=== PATIENT | female | born 1980 | race Hispanic/Latino ===

== ENCOUNTER 2016-05-25 10:14 | Outpatient (CLI) | payer MEDICARE | END 2016-05-25 10:15 | disposition home or self-care (01) | LOC: WOUND 10:14 | PROVIDERS: ATTEND Orthopaedic Surgery | DX: T81.89XD Other complications of procedures, not elsewhere classified, subsequent encounter (principal); L89.314 Pressure ulcer of right buttock, stage 4; Y83.8 Other surgical procedures as the cause of abnormal reaction of the patient, or of later complication, without mention of misadventure at the time of the procedure | CPT/HCPCS: 87075; 87116 ==

== ENCOUNTER 2016-06-15 09:15 | Outpatient (CLI) | payer MEDICARE ==
[2016-06-15] MEDS ORDERED: DAKIN'S FULL STRENGTH ONE (10:51)
[2016-06-15] MEDS ORDERED: DAKIN'S FULL STRENGTH TP ONE (11:56)
== END 2016-06-15 09:16 | disposition home or self-care (01) ==
LOC: WOUND 09:15
PROVIDERS: ATTEND Internal Medicine
DX: T81.89XD Other complications of procedures, not elsewhere classified, subsequent encounter (principal); L89.314 Pressure ulcer of right buttock, stage 4; Y83.8 Other surgical procedures as the cause of abnormal reaction of the patient, or of later complication, without mention of misadventure at the time of the procedure
CPT/HCPCS: 99215; G0463

== ENCOUNTER 2016-06-16 14:21 | Inpatient (IN) | payer MEDICARE ==
[2016-06-16] MEDS ORDERED: MORPHINE IV ONE (23:12)
[2016-06-16] MEDS ORDERED: ZOFRAN IV ONE (23:12)
[2016-06-16 23:46] LABS: Basophils % (Auto) 0.7 % (0.0-1.8); Eosinophils % (Auto) 4.2 % (0.0-4.3); Hematocrit 40.9 % (30.3-42.9); Hemoglobin 13.3 gm/dl (10.1-14.3); Mean Corpuscular HGB Conc 33 % (30-34); Mean Corpuscular Hemoglobin 27 pg (28-32); Mean Corpuscular Volume 84 fl (79-97); Platelet Count 316 K/mm3 (140-440); Red Blood Count 4.89 M/mm3 (3.65-5.03); Red Cell Distribution Width 17.3 % (13.2-15.2); White Blood Count 9.7 K/mm3 (4.5-11.0)
[2016-06-17] MEDS ORDERED: DILAUDID ONE (00:04)
[2016-06-17] MEDS ORDERED: DILAUDID IV ONE ×2 (00:06→01:27)
[2016-06-17 00:12] LABS: Anion Gap 23 mmol/L; BUN/Creatinine Ratio 36.66; Blood Urea Nitrogen 11 mg/dL (7-17); Calcium 8.8 mg/dL (8.4-10.2); Carbon Dioxide 16 mmol/L (22-30); Chloride 103.6 mmol/L (98-107); Creatine Kinase 62 units/L (30-135); Glucose 179 mg/dL (65-100); Potassium 3.8 mmol/L (3.6-5.0); Sodium 139 mmol/L (137-145)
[2016-06-17] MEDS ORDERED: NACL 0.9% 1000 ML 1,000 ML IV ONE (01:27)
--- NOTE | 2016-06-17 01:43 | Emergency Department Report ---
- General Chief Complaint: Wound/Laceration Stated Complaint: UPPER BACK PAIN Time Seen by Provider: 06/16/16 22:57 Source: patient, family Mode of arrival: Wheelchair Limitations: Physical Limitation - History of Present Illness Initial Comments: 36 year old female with a past medical history of diabetes, cerebral palsy, chronic back pain, no sensation below level T10/parpalegia presents to the hospital with complaints of infected chronic stage IV pressure ulcer and posterior thoracic pain status post fall. Patient goes to the Wound Care clinic here as a regional every 2 weeks. She visited the wound care clinic yesterday and was aforementioned to come to the hospital for admission. Patient is not currently on antibiotics. Yesterday while transferring patient fell striking her back on the floor and complains of posterior thoracic pain since. Pain is 9/10 intensity, constant, worse palpation and movement. No alleviating factors reported. Patient denies fevers - Related Data Home Medications Medication Instructions Recorded Confirmed Last Taken Atenolol [Tenormin] 25 mg PO DAILY 08/12/14 03/09/16 09/14/14 Glimepiride [Amaryl] 2 mg PO BID 08/12/14 03/09/16 09/14/14 Metformin HCl [Glucophage] 1,000 mg PO BID 08/12/14 03/09/16 09/14/14 Nortriptyline [Pamelor] 20 mg PO QHS 08/12/14 03/09/16 09/14/14 Valsartan [Diovan] 40 mg PO DAILY 08/12/14 03/09/16 09/14/14 Magnesium Oxide 1 tab PO DAILY 03/18/15 03/09/16 Unknown Tramadol HCl 1 tab PO Q6HR PRN 03/18/15 03/09/16 Unknown Allergies Allergy/AdvReac Type Severity Reaction Status Date / Time amoxicillin trihydrate AdvReac Diarrhea Verified 04/08/15 12:08 [From Augmentin] potassium clavulanate AdvReac Diarrhea Verified 04/08/15 12:08 [From Augmentin] ED Review of Systems ROS: Stated complaint: UPPER BACK PAIN Other details as noted in HPI Comment: All other systems reviewed and negative Other: Constitutional: No fevers chills Eyes: No eye pain visual changes ENT: No ear pain or throat pain Neck: Denies pain Respiratory: Denies cough wheezing shortness of breath Cardiovascular: Denies chest pain, palpitations, syncope GI: Denies abdominal pain, nausea, vomiting, diarrhea : Denies dysuria, urinary frequency, or urgency Musculoskeletal: As per HPI Skin: As per HPI Neurologic: Denies headache ED Past Medical Hx - Past Medical History Hx Hypertension: No Hx Heart Attack/AMI: No Hx Congestive Heart Failure: No Hx Diabetes: Yes Hx Liver Disease: No Hx Arthritis: Yes Hx Headaches / Migraines: Yes Hx Seizures: No Hx Kidney Stones: Yes Hx Asthma: No Hx COPD: No Hx HIV: No Additional medical history: Cerebral palsy, Numerous shunts and revisions, back pain, menangioma, hydrocephalus - Surgical History Additional Surgical History: 3 laminectomies, Shunts and revisions of shunts, Urostomy, colostomy, cervical fusion - Social History Smoking Status: Never Smoker Substance Use Type: None - Medications Home Medications: Home Medications Medication Instructions Recorded Confirmed Last Taken Type Atenolol [Tenormin] 25 mg PO DAILY 08/12/14 03/09/16 09/14/14 History Glimepiride [Amaryl] 2 mg PO BID 08/12/14 03/09/16 09/14/14 History Metformin HCl [Glucophage] 1,000 mg PO BID 08/12/14 03/09/16 09/14/14 History Nortriptyline [Pamelor] 20 mg PO QHS 08/12/14 03/09/16 09/14/14 History Valsartan [Diovan] 40 mg PO DAILY 08/12/14 03/09/16 09/14/14 History Magnesium Oxide 1 tab PO DAILY 03/18/15 03/09/16 Unknown History Tramadol HCl 1 tab PO Q6HR PRN 03/18/15 03/09/16 Unknown History ED Physical Exam - General Limitations: Physical Limitation - Other Other exam information: General: No limitations, patient is alert in no acute distress Head exam: Atraumatic, normocephalic Eyes exam: Normal appearance, pupils equal reactive to light, extraocular movements intact ENT: Moist mucous membrane, normal oropharynx Neck exam: Normal inspection, full range of motion, no meningismus nontender Respiratory exam: Clear to auscultation bilateral, no wheezes, rales, crackles Cardiovascular: Normal rate and rhythm, normal heart sounds Abdomen: Soft, nondistended, and nontender, with normal bowel sounds, no rebound, or guarding Extremity: Full range of motion normal inspection no deformity Back: Normal Inspection, full range of motion. Generalized posterior thoracic pain including midline Neurologic: Alert, oriented x3, cranial nerves intact, paraplegia Psychiatric: normal affect, normal mood Skin: Right posterior upper thigh pressure ulcer with pink tissue but malodorous green drainage noted ED Course Vital Signs 06/16/16 06/16/16 06/16/16 15:17 22:32 22:47 Temperature 97.5 F L Pulse Rate 103 H Respiratory 16 18 Rate Blood Pressure 94/42 167/73 O2 Sat by Pulse 100 100 Oximetry 06/16/16 06/16/16 06/16/16 22:50 23:00 23:10 Temperature Pulse Rate 99 H 92 H 98 H Respiratory 10 L 29 H 23 Rate Blood Pressure 167/73 167/73 132/66 O2 Sat by Pulse 98 97 97 Oximetry 06/16/16 06/16/16 06/16/16 23:20 23:30 23:40 Temperature Pulse Rate 101 H 102 H 106 H Respiratory 14 15 15 Rate Blood Pressure 111/47 111/47 142/68 O2 Sat by Pulse 96 97 98 Oximetry 06/16/16 06/17/16 06/17/16 23:50 00:00 00:10 Temperature Pulse Rate 105 H 134 H 125 H Respiratory 17 14 24 Rate Blood Pressure 165/82 165/82 183/95 O2 Sat by Pulse 98 97 98 Oximetry - Reevaluation(s) Reevaluation #1: 06/17/16 01:47 Despite multiple doses of narcotic pain medication patient still is in too much pain to lie flat for the wrist 6 x-rays therefore deferred at this time. Vancomycin ordered for infected pressure wound ED Medical Decision Making - Lab Data Result diagrams: 06/16/16 23:18 06/16/16 23:18 Lab Results 06/16/16 06/16/16 Range/Units 23:18 23:18 WBC 9.7 (4.5-11.0) K/mm3 RBC 4.89 (3.65-5.03) M/mm3 Hgb 13.3 (10.1-14.3) gm/dl Hct 40.9 (30.3-42.9) % MCV 84 (79-97) fl MCH 27 L (28-32) pg MCHC 33 (30-34) % RDW 17.3 H (13.2-15.2) % Plt Count 316 (140-440) K/mm3 Lymph % (Auto) 26.7 (13.4-35.0) % [place] % (Auto) 7.1 (0.0-7.3) % Eos % (Auto) 4.2 (0.0-4.3) % Baso % (Auto) 0.7 (0.0-1.8) % Lymph # 2.6 (1.2-5.4) K/mm3 [place] # 0.7 (0.0-0.8) K/mm3 Eos # 0.4 (0.0-0.4) K/mm3 Baso # 0.1 (0.0-0.1) K/mm3 Seg Neutrophils % 61.3 (40.0-70.0) % Seg Neutrophils # 6.0 (1.8-7.7) K/mm3 Sodium 139 (137-145) mmol/L Potassium 3.8 (3.6-5.0) mmol/L Chloride 103.6 (98-107) mmol/L Carbon Dioxide 16 L (22-30) mmol/L Anion Gap 23 mmol/L BUN 11 (7-17) mg/dL Creatinine 0.3 L (0.7-1.2) mg/dL Estimated GFR > 60 ml/min BUN/Creatinine Ratio 36.66 % Glucose 179 H (65-100) mg/dL Calcium 8.8 (8.4-10.2) mg/dL Total Creatine Kinase 62 (30-135) units/L - Medical Decision Making Patient admitted to the hospital for further treatment of infected stage IV right leg pressure ulcer. Normal saline and vancomycin ordered in addition to pain medication and Zofran. Posterior thoracic imaging deferred this time due to patient's inability to tolerate positioning secondary to pain - Differential Diagnosis infected pressure wound, fracture, contusion Critical Care Time: No Critical care attestation.: If time is entered above; I have spent that time in minutes in the direct care of this critically ill patient, excluding procedure time. ED Disposition Clinical Impression: Paraplegia, Infected decubitus ulcer, Diabetes mellitus, Cerebral palsy Disposition: OP ADMITTED IP TO THIS HOSP Is pt being admited?: Yes Condition: Stable Time of Disposition: 01:50 (dR RODRIGUEZ/HOSP)
[2016-06-17] MEDS ORDERED: VANCOMYCIN/NS 1 GM/250 ML 1 GM/250 ML BAG IV ONE (01:45)
[2016-06-17] MEDS ORDERED: DULCOLAX PR PRN (02:09)
[2016-06-17] MEDS ORDERED: MILK OF MAGNESIA PO PRN (02:09)
[2016-06-17] MEDS ORDERED: TYLENOL PO PRN (02:09)
[2016-06-17] MEDS ORDERED: ZOFRAN IV PRN (02:09)
--- NOTE | 2016-06-17 02:17 | History and Physical Report ---
History of Present Illness Date of examination: 06/17/16 Date of admission: 06/17/16 Chief complaint: infected decuibitus ulcer History of present illness: This is a 36 year old female with a past medical history of diabetes, cerebral palsy, hydrocephalus s/p [employer] shunt, no sensation below level T10/parpalegia presents to the hospital with complaints of infected chronic stage IV pressure ulcer and posterior thoracic pain status post fall. Patient goes to the Wound Care clinic where she gets follow up every 2 weeks. She visited the wound care clinic yesterday and was mentioned to come to the hospital for admission. Patient is not currently on antibiotics. Yesterday while transferring patient, she fell striking her back on the floor and complains of posterior thoracic pain since. Pain is 9/10 intensity, constant, worse palpation and movement. No alleviating factors reported. Patient denies any fever. 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 Social History: Lives with family, denies any smoking, drinking and elicit drug abuse. Family History: Significant for DM Review of System: Constitutional: no fever, no chills, no weight loss Ears, eyes, nose, mouth and throat: no nasal congestion, no nasal discharge, no sinus pressure, no vision change, no red eye. Neck: No neck pain or rigidity. Cardiovascular: No chest pain, no orthopnea, no palpitations, no leg swelling Respiratory: No shortness of breath, no cough, no congestion, no wheezing Gastrointestinal: no abdominal pain, no nausea, no vomiting Genitourinary : no dysuria, no hematuria Musculoskeletal: no joint swelling, + back pain Integumentary: no rash, no pruritis, sacral decuibitus ulcer Neurological: paraplegic Endocrine: no cold or heat intolerance, no polyuria or polydipsia Hematologic/Lymphatic: no easy bruising, no easy bleeding, no gland swelling Allergic/Immunologic: no urticaria, no angioedema. Medications and Allergies Allergies Allergy/AdvReac Type Severity Reaction Status Date / Time amoxicillin trihydrate AdvReac Diarrhea Verified 04/08/15 12:08 [From Augmentin] potassium clavulanate AdvReac Diarrhea Verified 04/08/15 12:08 [From Augmentin] Home Medications Medication Instructions Recorded Confirmed Last Taken Type Atenolol [Tenormin] 25 mg PO DAILY 08/12/14 03/09/16 09/14/14 History Glimepiride [Amaryl] 2 mg PO BID 08/12/14 03/09/16 09/14/14 History Metformin HCl [Glucophage] 1,000 mg PO BID 08/12/14 03/09/16 09/14/14 History Nortriptyline [Pamelor] 20 mg PO QHS 08/12/14 03/09/16 09/14/14 History Valsartan [Diovan] 40 mg PO DAILY 08/12/14 03/09/16 09/14/14 History Magnesium Oxide 1 tab PO DAILY 03/18/15 03/09/16 Unknown History Tramadol HCl 1 tab PO Q6HR PRN 03/18/15 03/09/16 Unknown History Active Meds: Active Medications Acetaminophen (Tylenol) 650 mg PO Q4H PRN PRN Reason: Pain MILD(1-3)/Fever >100.5/HSU Atenolol (Tenormin) 25 mg PO DAILY NAEL Bisacodyl (Dulcolax) 10 mg AK QDAY PRN PRN Reason: Constipation unrelieved by MOM Enoxaparin Sodium (Lovenox) 40 mg SUB-Q QDAY NAEL Glimepiride (Amaryl) 2 mg PO BID NAEL Vancomycin HCl (Vancomycin/Ns 1 Gm/250 Ml) 1 gm in 250 mls @ 167.007 mls/hr IV ONCE ONE PRN Reason: Protocol Stop: 06/17/16 03:14 Sodium Chloride (Nacl 0.9% 1000 Ml) 1,000 mls @ 999 mls/hr IV ONCE ONE Stop: 06/17/16 02:27 Last Admin: 06/17/16 01:53 Dose: 999 mls/hr Sodium Chloride (Nacl 0.9% 1000 Ml) 1,000 mls @ 100 mls/hr IV DIRECT NAEL Insulin Human Regular (Novolin R) 0 units SUB-Q ACHS NAEL PRN Reason: Protocol Magnesium Hydroxide (Milk Of Magnesia) 30 ml PO Q4H PRN PRN Reason: Constipation Miscellaneous Medication (Magnesium Oxide) 1 tab PO DAILY NAEL Miscellaneous Medication (Metformin Hcl [Glucophage]) 1,000 mg PO BID [facility] Miscellaneous Medication (Tramadol Hcl) 1 tab PO Q6HR PRN PRN Reason: Pain Morphine Sulfate (Morphine) 2 mg IV Q4H PRN PRN Reason: Pain, Moderate (4-6) Nortriptyline HCl (Pamelor) 20 mg PO QHS [facility] Ondansetron HCl (Zofran) 4 mg IV Q8H PRN PRN Reason: N/V unrelieved by Reglan Valsartan (Diovan) 40 mg PO DAILY [facility] Vancomycin HCl (Vancomycin Pharmacy To Dose) 1 each IV PKCONSULT NAEL PRN Reason: Protocol Vancomycin HCl (Vancomycin Vial) 41.1 mg IV Q12H NAEL PRN Reason: Protocol Exam - Physical Exam Narrative exam: GENERAL: This is well-developed well-nourished WF lying on bed appeared to be in no discomfort. HEENT: Normocephalic. Atraumatic. Extraocular motions are intact. No conjunctival congestion or icterus. Patient has moist mucous membranes. External auditory canal and nares patent bilaterally. NECK: Trachea midline, thick short neck. No JVD, thyromagaly or lymphadenopathy. CHEST/LUNGS: Clear to auscultated bilaterally. There is no respiratory distress noted, breathing nonlabored. No wheezes crackles or rhonchi. HEART/CARDIOVASCULAR: Regular in rate and rhythm. PMI at the apex. There is no gallop rub or murmur. ABDOMEN: Abdomen is soft, nontender. Patient has normal bowel sounds. urostomy and colostomy bag in place SKIN: There is no rash, no erythrema. There is no diaphoresis. Warm and dry. sacral decuibitus ulcer NEUROLOGY: The patient is awake, alert, and oriented. The patient is cooperative. The patient has normal speech. paraplegic. MUSCULOSKELETAL: No joint effusion. Muscle strength equal bilaterally on UE. EXTRIMITY: No edema, cyanosis or clubbing. PSYCH: No depression or anxiety noted. Cooperative. - Constitutional Vitals: Temp Pulse Resp BP Pulse Ox 97.5 F L 125 H 24 183/95 98 06/16/16 15:17 06/17/16 00:10 06/17/16 00:10 06/17/16 00:10 06/17/16 00:10 Results - Labs CBC & Chem 7: 06/16/16 23:18 06/16/16 23:18 Labs: Laboratory Last Values WBC 9.7 K/mm3 (4.5-11.0) 06/16/16 23:18 RBC 4.89 M/mm3 (3.65-5.03) 06/16/16 23:18 Hgb 13.3 gm/dl (10.1-14.3) 06/16/16 23:18 Hct 40.9 % (30.3-42.9) 06/16/16 23:18 MCV 84 fl (79-97) 06/16/16 23:18 MCH 27 pg (28-32) L 06/16/16 23:18 MCHC 33 % (30-34) 06/16/16:18 RDW 17.3 % (13.2-15.2) H 06/16/16 23:18 Plt Count 316 K/mm3 (140-440) 06/16/16 23:18 Lymph % (Auto) 26.7 % (13.4-35.0) 06/16/16 23:18 [place] % (Auto) 7.1 % (0.0-7.3) 06/16/16 23:18 Eos % (Auto) 4.2 % (0.0-4.3) 06/16/16 23:18 Baso % (Auto) 0.7 % (0.0-1.8) 06/16/16 23:18 Lymph # 2.6 K/mm3 (1.2-5.4) 06/16/16 23:18 [place] # 0.7 K/mm3 (0.0-0.8) 06/16/16 23:18 Eos # 0.4 K/mm3 (0.0-0.4) 06/16/16 23:18 Baso # 0.1 K/mm3 (0.0-0.1) 06/16/16 23:18 Seg Neutrophils % 61.3 % (40.0-70.0) 06/16/16 23:18 Seg Neutrophils # 6.0 K/mm3 (1.8-7.7) 06/16/16 23:18 Sodium 139 mmol/L (137-145) 06/16/16 23:18 Potassium 3.8 mmol/L (3.6-5.0) 06/16/16 23:18 Chloride 103.6 mmol/L (98-107) 06/16/16 23:18 Carbon Dioxide 16 mmol/L (22-30) L 06/16/16 23:18 Anion Gap 23 mmol/L 06/16/16 23:18 BUN 11 mg/dL (7-17) 06/16/16 23:18 Creatinine 0.3 mg/dL (0.7-1.2) L 06/16/16 23:18 Estimated GFR > 60 ml/min 06/16/16 23:18 BUN/Creatinine Ratio 36.66 % 06/16/16 23:18 Glucose 179 mg/dL (65-100) H 06/16/16 23:18 Calcium 8.8 mg/dL (8.4-10.2) 06/16/16 23:18 Total Creatine Kinase 62 units/L (30-135) 06/16/16 23:18 Assessment and Plan Assessment and plan: Infected decubitus ulcer stage IV History of cerebral palsy Hypertension, benign essential Diabetes mellitus type 2 on oral hypoglycemics paraplegic s/o urostomy and colostomy s/p fall Plan: Admit to medicine Place on IV vancomycin Wound care consult, wound culture Resume home meds ADA diet, supportive care GS consult for possible debridement follow GS recommendation for MRI for possible osteomylitis consider CT thoracic spine if continue to have thoracic back pain Advance Directives: Yes VTE prophylaxis?: Chemical Plan of care discussed with patient/family: Yes
[2016-06-17] MEDS ORDERED: VANCOMYCIN PHARMACY TO DOSE IV SCH (03:00)
[2016-06-17] MEDS ORDERED: VANCOMYCIN VIAL IV SCH (03:00)
[2016-06-17] MEDS: MORPHINE IV PRN ×4 (04:21→22:34)
[2016-06-17] MEDS: NACL 0.9% 1000 ML 1,000 ML IV SCH (04:22)
[2016-06-17] MEDS: GLUCOPHAGE PO SCH ×2 (08:45→16:59)
[2016-06-17] MEDS: AMARYL PO SCH ×2 (08:45→16:59)
[2016-06-17] MEDS: TENORMIN PO SCH (10:26)
[2016-06-17] MEDS: MAG-OX PO SCH (10:26)
[2016-06-17] MEDS: DIOVAN PO SCH (10:27)
[2016-06-17] MEDS: LOVENOX SUB-Q SCH (10:27)
[2016-06-17] MEDS: VANCOMYCIN VIAL 1,250 MG in NACL 0.9% 250ML 250 ML IV SCH ×2 (10:41→22:40)
--- NOTE | 2016-06-17 13:43 | Progress Note ---
Assessment and Plan Full consult dictated History of present illness: This is a 36 year old female with a past medical history of diabetes, cerebral palsy, hydrocephalus no sensation below level T10/parpalegia presents to the hospital with complaints of infected chronic stage IV pressure ulcer and posterior thoracic pain status post fall. Patient goes to the Wound Care clinic here as a regional every 2 weeks. She visited the wound care clinic yesterday and was aforementioned to come to the hospital for admission. Patient is not currently on antibiotics. Yesterday while transferring patient fell striking her back on the floor and complains of posterior thoracic pain since. Pain is 9/10 intensity, constant, worse palpation and movement. No alleviating factors reported. Patient denies fevers Past medical History: h/o hypertension, diabetes, cerebral palsy, chronic back pain, decuibitus ulcer Ulcer inspected. superficial skin breakdown without evidence of fluctuance, purulence or deep tissue necrosis. wbc 9.7 rec local ET wd care platstic surg eval will follow with you Laboratory Tests 06/16/16 23:18 WBC 9.7 Hgb 13.3 Hct 40.9 Objective Vital Signs - 12hr 06/17/16 06/17/16 06/17/16 04:34 04:35 10:26 Temperature 99.3 F Pulse Rate [ 116 H 116 H Left Radial] Respiratory 20 20 Rate Blood Pressure 140/78 Blood Pressure 147/77 [Left Arm] O2 Sat by Pulse 97 97 Oximetry - Labs 06/16/16 23:18 06/16/16 23:18
--- NOTE | 2016-06-17 14:32 | Consultation ---
REASON FOR CONSULTATION: Rule out decubitus ulcer. HISTORY OF PRESENT ILLNESS: The patient is a 36-year-old female with a past medical history of diabetes, cerebral palsy, hydrocephalus, and no sensation below T10 paraplegia, presented to the Emergency Room with chronically infected pressure ulcer. The patient is being treated in the outpatient wound center. At this time, I am being consulted to evaluate the wound. PAST MEDICAL HISTORY: Other past medical history and surgeries are on the chart. PHYSICAL EXAMINATION: At this time, the patient is lying in bed. Her mom fortunately is also by her side. The patient was turned and the decubitus ulcer evaluated. The wound itself appears superficial and clean. No evidence of deep infections, purulence, or fluctuance. LABORATORY DATA: Lab work at present includes a CBC which shows a white count of 9.7, H and H is 13 and 40. IMPRESSION: At this time is that of a 36-year-old female: 1. Known paraplegic, cerebral palsy. 2. Apparent superficial decubitus tissue breakdown. RECOMMENDATIONS: This appears that this is a wound that can be locally treated with local wound care. I will obtain EP evaluation for care. Also, would recommend Plastic Surgery evaluation. If wound is clean enough, it is possible that flap or other reconstructive measures can be attempted. We will follow with you. Thank you very much for consultation. JOB# [id number] YAHAIRA/ROMY
--- NOTE | 2016-06-17 15:23 | Event Note ---
Date: 06/17/16 Patient admitted for decubitus ulcer, and back pain after fall, It doesn't look like infected, Surgery and wound consult placed.
[2016-06-17] MEDS: PAMELOR PO SCH (22:33)
--- NOTE | 2016-06-18 00:42 | Admit Criteria Form ---
Admission Criteria Documentation: WOUND COMPLICATIONS Clinical Indications for Inpatient Care (Place 'X' for any and all applicable criteria): Ongoing inpatient care may be indicated for wound complications with ANY ONE of the following (1) (15): [X ]I. Infection with ANY ONE of the following(32)(33): [ ]a) Temperature greater than 38.5 C (101.3 F) [ ]b) Evidence of tissue necrosis [ ]c) Erythema diameter expanding around wound despite treatment [ ]d) Mental status changes [ ]e) Dehydration [ ]f) Bacteremia [ ]g) Hemodynamic instability [ ]h) Suspected necrotizing fasciitis [ ]i) Rapidly spreading lesions [ ]j) High-risk location (eg, perineum, sternum, orbit) [ X]k) High-risk coexisting clinical condition as indicated by ANY ONE of the following: [X ]i) Poorly controlled diabetes [ ]ii) Cirrhosis [ ]iii) Renal failure [ ]iv) Neutropenia [ ] v) Asplenia [ ]vi) Immunosuppression (eg, AIDS, chronic corticosteroid use) [ ]viii) Other high-risk medical comorbidities [ ] II. Dehiscence requiring frequent monitoring or immediate treatment [ ] III. Hematoma with ANY ONE of the following: [ ]a) Hemodynamic instability or acute anemia due to rapid development of hematoma [ ]b) Neck hematoma causing airway compression [ ]c) Retroperitoneal hematoma [ ]d) Uncontrolled coagulopathy [ ]IV. Seroma with evidence of secondary infection and requirement for IV antibiotics [D](31) [ ]V. Pain that cannot be managed at lower level of care Extended stay beyond goal length of stay for primary condition may be needed until ALL of the following are present(1)(33)(34): [ ]a) Afebrile or fever resolving [ ]b) Hemodynamic stability [ ]c) Pain resolving [ ]d) Wound closed, continuity adequately restored, or wound manageable at lower level of care [ ]e) No drain needed or drain care manageable at lower level of care [ ]f) Wound hematoma or seroma resolving [ ]g) Antibiotics not needed or regimen manageable at lower level of care(38) [ ]h) Dressing care manageable at lower level of care [ ]i) Coagulopathy absent, resolved, or treatable at lower level of care [ ]j) Medical comorbidities resolved or treatable at lower level of care The original [facility] [employer] content created by April Willett has been revised. The portions of the content which have been revised are identified through the use of italic text or in bold, and Apirl Willett has neither reviewed nor approved the modified material. All other unmodified content is copyright [facility] [facility] [employer]. Please see references footnoted in the original [facility] edition 2016 Admission Criteria Met: Yes
[2016-06-18] MEDS: MORPHINE IV PRN (05:39)
[2016-06-18 07:57] LABS: Anion Gap 21 mmol/L; BUN/Creatinine Ratio 26.66; Blood Urea Nitrogen 8 mg/dL (7-17); Calcium 8.1 mg/dL (8.4-10.2); Carbon Dioxide 16 mmol/L (22-30); Glucose 156 mg/dL (65-100); Potassium 4.3 mmol/L (3.6-5.0); Sodium 140 mmol/L (137-145)
[2016-06-18] MEDS: GLUCOPHAGE PO SCH ×2 (08:00→17:17)
[2016-06-18 08:04] LABS: Basophils % (Auto) 1.1 % (0.0-1.8); Hematocrit 35.6 % (30.3-42.9); Hemoglobin 11.4 gm/dl (10.1-14.3); Mean Corpuscular HGB Conc 32 % (30-34); Mean Corpuscular Hemoglobin 27 pg (28-32); Mean Corpuscular Volume 84 fl (79-97); Platelet Count 222 K/mm3 (140-440); Red Blood Count 4.24 M/mm3 (3.65-5.03); Red Cell Distribution Width 16.9 % (13.2-15.2); White Blood Count 3.3 K/mm3 (4.5-11.0)
[2016-06-18] MEDS: AMARYL PO SCH ×2 (08:18→17:17)
[2016-06-18] MEDS: ULTRAM PO PRN ×2 (08:29→18:24)
[2016-06-18] MEDS: TENORMIN PO SCH (09:46)
[2016-06-18] MEDS: LOVENOX SUB-Q SCH (09:46)
[2016-06-18] MEDS: DIOVAN PO SCH (09:46)
[2016-06-18] MEDS: MAG-OX PO SCH (09:47)
[2016-06-18] MEDS ORDERED: DILAUDID IV NR (10:04)
[2016-06-18] MEDS: VANCOMYCIN VIAL 1,250 MG in NACL 0.9% 250ML 250 ML IV SCH ×2 (10:12→22:09)
--- NOTE | 2016-06-18 12:04 | Progress Note ---
Assessment and Plan Pt status quo without any new complaints awaiting plastics & ortho eval begin wd care as per ET nurse surgically stable Objective Vital Signs - 12hr 06/18/16 06/18/16 08:40 09:46 Temperature 98.2 F Pulse Rate [ 98 H Right Radial] Respiratory 18 Rate Blood Pressure 120/60 Blood Pressure 136/79 [Left Arm] O2 Sat by Pulse 98 Oximetry - Labs 06/18/16 06:56 06/18/16 06:56 Diabetes panel 06/18/16 Range/Units 06:56 Sodium 140 (137-145) mmol/L Potassium 4.3 (3.6-5.0) mmol/L Chloride 107.0 (98-107) mmol/L Carbon Dioxide 16 L (22-30) mmol/L BUN 8 (7-17) mg/dL Creatinine 0.3 L (0.7-1.2) mg/dL Glucose 156 H (65-100) mg/dL Calcium 8.1 L (8.4-10.2) mg/dL Calcium panel 06/18/16 Range/Units 06:56 Calcium 8.1 L (8.4-10.2) mg/dL Pituitary panel 06/18/16 Range/Units 06:56 Sodium 140 (137-145) mmol/L Potassium 4.3 (3.6-5.0) mmol/L Chloride 107.0 (98-107) mmol/L Carbon Dioxide 16 L (22-30) mmol/L BUN 8 (7-17) mg/dL Creatinine 0.3 L (0.7-1.2) mg/dL Glucose 156 H (65-100) mg/dL Calcium 8.1 L (8.4-10.2) mg/dL Adrenal panel 06/18/16 Range/Units 06:56 Sodium 140 (137-145) mmol/L Potassium 4.3 (3.6-5.0) mmol/L Chloride 107.0 (98-107) mmol/L Carbon Dioxide 16 L (22-30) mmol/L BUN 8 (7-17) mg/dL Creatinine 0.3 L (0.7-1.2) mg/dL Glucose 156 H (65-100) mg/dL Calcium 8.1 L (8.4-10.2) mg/dL
--- NOTE | 2016-06-18 14:04 | XRay Report ---
THORACIC SPINE THREE VIEWS: 06/17/16 01:51:00 CLINICAL: Fall and back pain. FINDINGS: Poor quality examination which is limited by suboptimal positioning and body habitus. Crosstable lateral views are particularly limited with the upper portion of the thoracic spine not imaged. 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 No fracture. IMPRESSION: Ankylosing spondylitis and a very limited examination for reasons cited above. No apparent traumatic injury.
--- NOTE | 2016-06-18 14:22 | Progress Note ---
Assessment and Plan Assessment and plan: Infected decubitus ulcer - On IV vancomycin - Wound Care Consult placed - Plastic surgery consult placed - No fevers chills - Patient is complaining back pain - Thoracic spinal x-ray ordered - Pain control - We'll follow his x-ray result History Interval history: Patient is not in respiratory distress or pain. Hospitalist Physical - Physical exam Narrative exam: Not in cardiopulmonary distress. The patient appeared well nourished and normally developed. Vital signs as documented. Head exam is unremarkable. No scleral icterus . Neck is without jugular venous distension, thyromegaly, or carotid bruits. Lungs are clear to auscultation. Cardiac exam reveals regular rate and Rhythm. First and second heart sounds normal. No murmurs, rubs or gallops. Abdominal exam reveals normal bowel sounds, no masses, no organomegaly and no aortic enlargement. Back: Decubitus ulcer. 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 Paraplegia. - Constitutional Vitals: Temp Pulse Resp BP Pulse Ox 98.2 F 98 H 18 120/60 98 06/18/16 08:40 06/18/16 08:40 06/18/16 08:40 06/18/16 09:46 06/18/16 08:40 Results - Labs CBC & Chem 7: 06/18/16 06:56 06/18/16 06:56 Labs: Laboratory Last Values WBC 3.3 K/mm3 (4.5-11.0) L 06/18/16 06:56 RBC 4.24 M/mm3 (3.65-5.03) 06/18/16 06:56 Hgb 11.4 gm/dl (10.1-14.3) 06/18/16 06:56 Hct 35.6 % (30.3-42.9) 06/18/16 06:56 MCV 84 fl (79-97) 06/18/16 06:56 MCH 27 pg (28-32) L 06/18/16 06:56 MCHC 32 % (30-34) 06/18/16 06:56 RDW 16.9 % (13.2-15.2) H 06/18/16 06:56 Plt Count 222 K/mm3 (140-440) 06/18/16 06:56 Lymph % (Auto) 34.2 % (13.4-35.0) 06/18/16 06:56 Woodruff % (Auto) 11.4 % (0.0-7.3) H 06/18/16 06:56 Eos % (Auto) 9.0 % (0.0-4.3) H 06/18/16 06:56 Baso % (Auto) 1.1 % (0.0-1.8) 06/18/16 06:56 Lymph # 1.1 K/mm3 (1.2-5.4) L 06/18/16 06:56 Woodruff # 0.4 K/mm3 (0.0-0.8) 06/18/16 06:56 Eos # 0.3 K/mm3 (0.0-0.4) 06/18/16 06:56 Baso # 0.0 K/mm3 (0.0-0.1) 06/18/16 06:56 Seg Neutrophils % 44.3 % (40.0-70.0) 06/18/16 06:56 Seg Neutrophils # 1.5 K/mm3 (1.8-7.7) L 06/18/16 06:56 Sodium 140 mmol/L (137-145) 06/18/16 06:56 Potassium 4.3 mmol/L (3.6-5.0) 06/18/16 06:56 Chloride 107.0 mmol/L (98-107) 06/18/16 06:56 Carbon Dioxide 16 mmol/L (22-30) L 06/18/16 06:56 Anion Gap 21 mmol/L 06/18/16 06:56 BUN 8 mg/dL (7-17) 06/18/16 06:56 Creatinine 0.3 mg/dL (0.7-1.2) L 06/18/16 06:56 Estimated GFR > 60 ml/min 06/18/16 06:56 BUN/Creatinine Ratio 26.66 % 06/18/16 06:56 Glucose 156 mg/dL (65-100) H 06/18/16 06:56 POC Glucose 163 (70-105) H 06/18/16 12:49 Calcium 8.1 mg/dL (8.4-10.2) L 06/18/16 06:56 Total Creatine Kinase 62 units/L (30-135) 06/16/16 23:18
[2016-06-18] MEDS: PERCOCET 5/325 PO PRN ×2 (15:04→23:15)
[2016-06-18] MEDS: PAMELOR PO SCH (22:09)
[2016-06-18] MEDS: NACL 0.9% 1000 ML 1,000 ML IV SCH (23:17)
[2016-06-19] MEDS: VANCOMYCIN VIAL 1,250 MG in NACL 0.9% 250ML 250 ML IV SCH (09:52)
[2016-06-19] MEDS: GLUCOPHAGE PO SCH ×2 (09:53→17:41)
[2016-06-19] MEDS: PERCOCET 5/325 PO PRN (09:53)
[2016-06-19] MEDS: MAG-OX PO SCH (09:54)
[2016-06-19] MEDS: AMARYL PO SCH ×2 (09:54→17:41)
[2016-06-19] MEDS: LOVENOX SUB-Q SCH (09:54)
[2016-06-19] MEDS: TENORMIN PO SCH (09:54)
[2016-06-19] MEDS: DIOVAN PO SCH (09:55)
[2016-06-19] MEDS: MORPHINE IV PRN ×2 (11:01→22:25)
--- NOTE | 2016-06-19 12:56 | Progress Note ---
Assessment and Plan Assessment and plan: Decubitus Ulcer - IV vancomycin d/yazmin - Wound Care Consult appreciated - No fevers chills - Patient is complaining back pain from fall down injury - Thoracic spinal x-ray ordered which was normal even though motion artifact was difficult to interpret - MRI of the spine, orthopedics consult placed - Pain control - We'll follow the MRI result Disposition Plan: continue inpatient care History Interval history: Patient is not in respiratory distress. She is complaining back pain especially when she is moving in the bed. Hospitalist Physical - Physical exam Narrative exam: Not in cardiopulmonary distress. The patient appeared well nourished and normally developed. Vital signs as documented. Head exam is unremarkable. No scleral icterus . Neck is without jugular venous distension, thyromegaly, or carotid bruits. Lungs are clear to auscultation. Cardiac exam reveals regular rate and Rhythm. First and second heart sounds normal. No murmurs, rubs or gallops. Abdominal exam reveals colostomy and urostomy bags. Back: Stage IV beffy ullcer with minimal surrounding skin necrosis, no sign of infection. 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 Paraplegia. - Constitutional Vitals: Temp Pulse Resp BP Pulse Ox 98.5 F 86 18 154/90 95 06/19/16 08:05 06/19/16 08:05 06/19/16 08:05 06/19/16 09:55 06/19/16 08:05 Results - Labs CBC & Chem 7: 06/18/16 06:56 06/18/16 06:56 Labs: Laboratory Last Values WBC 3.3 K/mm3 (4.5-11.0) L 06/18/16 06:56 RBC 4.24 M/mm3 (3.65-5.03) 06/18/16 06:56 Hgb 11.4 gm/dl (10.1-14.3) 06/18/16 06:56 Hct 35.6 % (30.3-42.9) 06/18/16 06:56 MCV 84 fl (79-97) 06/18/16 06:56 MCH 27 pg (28-32) L 06/18/16 06:56 MCHC 32 % (30-34) 06/18/16 06:56 RDW 16.9 % (13.2-15.2) H 06/18/16 06:56 Plt Count 222 K/mm3 (140-440) 06/18/16 06:56 Lymph % (Auto) 34.2 % (13.4-35.0) 06/18/16 06:56 Mcclain % (Auto) 11.4 % (0.0-7.3) H 06/18/16 06:56 Eos % (Auto) 9.0 % (0.0-4.3) H 06/18/16 06:56 Baso % (Auto) 1.1 % (0.0-1.8) 06/18/16 06:56 Lymph # 1.1 K/mm3 (1.2-5.4) L 06/18/16 06:56 Mcclain # 0.4 K/mm3 (0.0-0.8) 06/18/16 06:56 Eos # 0.3 K/mm3 (0.0-0.4) 06/18/16 06:56 Baso # 0.0 K/mm3 (0.0-0.1) 06/18/16 06:56 Seg Neutrophils % 44.3 % (40.0-70.0) 06/18/16 06:56 Seg Neutrophils # 1.5 K/mm3 (1.8-7.7) L 06/18/16 06:56 Sodium 140 mmol/L (137-145) 06/18/16 06:56 Potassium 4.3 mmol/L (3.6-5.0) 06/18/16 06:56 Chloride 107.0 mmol/L (98-107) 06/18/16 06:56 Carbon Dioxide 16 mmol/L (22-30) L 06/18/16 06:56 Anion Gap 21 mmol/L 06/18/16 06:56 BUN 8 mg/dL (7-17) 06/18/16 06:56 Creatinine 0.3 mg/dL (0.7-1.2) L 06/18/16 06:56 Estimated GFR > 60 ml/min 06/18/16 06:56 BUN/Creatinine Ratio 26.66 % 06/18/16 06:56 Glucose 156 mg/dL (65-100) H 06/18/16 06:56 POC Glucose 208 (70-105) H 06/19/16 11:51 Calcium 8.1 mg/dL (8.4-10.2) L 06/18/16 06:56 Total Creatine Kinase 62 units/L (30-135) 06/16/16 23:18
--- NOTE | 2016-06-19 13:14 | Progress Note ---
Assessment and Plan Pt status quo. stable from gen surg perspective awaiting MRI as per ortho. will follow prn Objective Vital Signs - 12hr 06/19/16 06/19/16 08:05 09:55 Temperature 98.5 F Pulse Rate [ 86 Right Radial] Respiratory 18 Rate Blood Pressure 154/90 Blood Pressure 154/90 [Left Arm] O2 Sat by Pulse 95 Oximetry - Labs 06/18/16 06:56 06/18/16 06:56
[2016-06-19] MEDS ORDERED: DILAUDID IV ONE ×2 (14:29→15:20)
[2016-06-19] MEDS ORDERED: ATIVAN IV ONE (14:30)
--- NOTE | 2016-06-19 16:19 | Consultation ---
History of Present Illness - [facility] Consult date: 06/19/16 Consult reason: other (36 years old, obese, paraplegic at T10. She had 3 lumbar surgeries in the past. She is transferring and fell and landed on her back, complaining of back pain. Since the fall is no change in neurological status. No upper limb neurological symptoms.) Past History Past Medical History: diabetes Past Surgical History: Other (Lumbar decompression x3, she became paraplegic following surgery ( as the patient). She also had an anterior cervical discectomy fusion in the past.) Medications and Allergies Allergies Allergy/AdvReac Type Severity Reaction Status Date / Time amoxicillin trihydrate AdvReac Diarrhea Verified 04/08/15 12:08 [From Augmentin] potassium clavulanate AdvReac Diarrhea Verified 04/08/15 12:08 [From Augmentin] Home Medications Medication Instructions Recorded Confirmed Last Taken Type Atenolol [Tenormin] 25 mg PO DAILY 08/12/14 03/09/16 09/14/14 History Glimepiride [Amaryl] 2 mg PO BID 08/12/14 03/09/16 09/14/14 History Metformin HCl [Glucophage] 1,000 mg PO BID 08/12/14 03/09/16 09/14/14 History Nortriptyline [Pamelor] 20 mg PO QHS 08/12/14 03/09/16 09/14/14 History Valsartan [Diovan] 40 mg PO DAILY 08/12/14 03/09/16 09/14/14 History Magnesium Oxide 1 tab PO DAILY 03/18/15 03/09/16 Unknown History Tramadol HCl 1 tab PO Q6HR PRN 03/18/15 03/09/16 Unknown History Active Meds: Active Medications Acetaminophen (Tylenol) 650 mg PO Q4H PRN PRN Reason: Pain MILD(1-3)/Fever >100.5/HSU Atenolol (Tenormin) 25 mg PO DAILY [facility] Last Admin: 06/19/16 09:54 Dose: 25 mg Bisacodyl (Dulcolax) 10 mg GA QDAY PRN PRN Reason: Constipation unrelieved by MOM Enoxaparin Sodium (Lovenox) 40 mg SUB-Q QDAY [facility] Last Admin: 06/19/16 09:54 Dose: 40 mg Glimepiride (Amaryl) 2 mg PO BIDDIAB [facility] Last Admin: 06/19/16 09:54 Dose: 2 mg Sodium Chloride (Nacl 0.9% 1000 Ml) 1,000 mls @ 100 mls/hr IV DIRECT [facility] Last Admin: 06/18/16 23:17 Dose: 100 mls/hr Insulin Human Regular (Novolin R) 0 units SUB-Q ACHS [facility] PRN Reason: Protocol Last Admin: 06/19/16 12:49 Dose: 2 units Magnesium Hydroxide (Milk Of Magnesia) 30 ml PO Q4H PRN PRN Reason: Constipation Magnesium Oxide (Mag-Ox) 400 mg PO DAILY [facility] Last Admin: 06/19/16 09:54 Dose: 400 mg Metformin HCl (Glucophage) 1,000 mg PO BIDDIAB [facility] Last Admin: 06/19/16 09:53 Dose: 1,000 mg Morphine Sulfate (Morphine) 2 mg IV Q4H PRN PRN Reason: Pain, Moderate (4-6) Last Admin: 06/19/16 11:01 Dose: 2 mg Nortriptyline HCl (Pamelor) 20 mg PO QHS [facility] Last Admin: 06/18/16 22:09 Dose: 20 mg Ondansetron HCl (Zofran) 4 mg IV Q8H PRN PRN Reason: N/V unrelieved by Shankar Last Admin: 06/17/16 22:34 Dose: 4 mg Oxycodone/Acetaminophen (Percocet 5/325) 2 tab PO Q6H PRN PRN Reason: Pain, Moderate (4-6) Last Admin: 06/19/16 09:53 Dose: 2 tab Tramadol HCl (Ultram) 50 mg PO Q6H PRN PRN Reason: Pain Last Admin: 06/18/16 18:24 Dose: 50 mg Valsartan (Diovan) 40 mg PO DAILY [facility] Last Admin: 06/19/16 09:55 Dose: 40 mg Physical Examination - Lumbar Spine Other nerve symptoms: other (She appears comfortable, complaints of pain in the midthoracic area, no radicular symptoms. She is T10 paraplegic. She has no upper limb acute neurological deficits, since injury (fall) her neurological status has not changed.) Assessment and Plan - Patient Problems (1) Ankylosing spondylitis of lumbosacral region Current Visit: Yes Status: Chronic Plan to address problem: Symptomatic treatment, pain management Bed to chair ambulation as pain permits. In the absence of any progressive neurological deficit, no further workup is indicated. If she should develop progressive neurological changes then consider an MR scan to evaluate for ascending hematoma. As he is already paraplegic at this point it does not make a difference if she has a spinal fracture or ascending hematoma unless neurological status changes(extending to upper limb) (2) Mid back pain Current Visit: Yes Status: Acute Plan to address problem: symptomatic treatment, but chair or wheelchair ebullition as tolerated. (3) Paraplegic spinal paralysis Current Visit: Yes Status: Acute Plan to address problem: Paraplegia at? T10, chronic. Continue with symptomatic treatment.
[2016-06-19] MEDS: PAMELOR PO SCH (22:19)
[2016-06-19] MEDS: NACL 0.9% 1000 ML 1,000 ML IV SCH (22:21)
[2016-06-20] MEDS: MORPHINE IV PRN ×2 (05:33→11:02)
[2016-06-20] MEDS: GLUCOPHAGE PO SCH ×2 (08:35→17:56)
[2016-06-20] MEDS: AMARYL PO SCH ×2 (08:37→17:57)
[2016-06-20] MEDS: TENORMIN PO SCH (09:24)
[2016-06-20] MEDS: DIOVAN PO SCH (09:24)
[2016-06-20] MEDS: MAG-OX PO SCH (09:24)
[2016-06-20] MEDS: LOVENOX SUB-Q SCH (09:26)
[2016-06-20] MEDS: PERCOCET 5/325 PO PRN ×2 (12:40→20:21)
--- NOTE | 2016-06-20 16:00 | Progress Note ---
Assessment and Plan - Patient Problems (1) Ankylosing spondylitis of lumbosacral region Current Visit: Yes Status: Chronic Plan to address problem: Symptomatic treatment, pain management Bed to chair ambulation as pain permits. In the absence of any progressive neurological deficit, no further workup is indicated. If she should develop progressive neurological changes then consider an MR scan to evaluate for ascending hematoma. As he is already paraplegic at this point it does not make a difference if she has a spinal fracture or ascending hematoma unless neurological status changes(extending to upper limb) (2) Mid back pain Current Visit: Yes Status: Acute Plan to address problem: symptomatic treatment, but chair or wheelchair ebullition as tolerated. (3) Paraplegic spinal paralysis Current Visit: Yes Status: Acute Subjective Date of service: 06/20/16 Interval history: Obese female with paraplegia T10, ankylosing spondylitis, back pain resulting from a fall. She is status post anterior cervical discectomy fusion. Objective Vital signs: Vital Signs - 12hr 06/20/16 06/20/16 08:00 09:24 Temperature 97.9 F Pulse Rate [ 80 Right Radial] Respiratory 16 Rate Blood Pressure 178/90 Blood Pressure 178/90 [Left Arm] O2 Sat by Pulse 97 Oximetry Narrative Exam: No change in neurological status, no acute involving the upper limb. - Labs CBC & BMP: 06/18/16 06:56 06/18/16 06:56 Labs: Abnormal lab results 06/19/16 06/19/16 06/20/16 Range/Units 16:31 21:34 06:46 POC Glucose 143 H 167 H 174 H (70-105) 06/20/16 Range/Units 11:26 POC Glucose 108 H (70-105)
[2016-06-20] MEDS: NACL 0.9% 1000 ML 1,000 ML IV SCH (23:02)
[2016-06-20] MEDS: PAMELOR PO SCH (23:03)
[2016-06-21] MEDS: PERCOCET 5/325 PO PRN ×2 (02:33→09:42)
--- NOTE | 2016-06-21 03:42 | Progress Note ---
Assessment and Plan - Patient Problems (1) Paraplegic spinal paralysis Current Visit: Yes Status: Chronic Plan to address problem: Pain control, supportive care, (2) Ankylosing spondylitis of lumbosacral region Current Visit: Yes Status: Chronic Plan to address problem: Pain control, supportive care, (3) Diabetes mellitus Current Visit: Yes Status: Chronic Qualifiers: Diabetes mellitus type: D Diabetes mellitus complication status: D Diabetes mellitus complication detail: D Diabetic retinopathy severity: D Proliferative retinopathy type: P Diabetes mellitus macular edema: D Diabetes mellitus nursing home insulin use: D Laterality: L Chronic kidney disease stage: C Plan to address problem: ADA diet, insulin, accu check (4) HTN (hypertension) Current Visit: No Status: Chronic Qualifiers: Hypertension type: H Plan to address problem: monitor bp q shift (5) Sacral decubitus ulcer, stage IV Current Visit: No Status: Chronic Plan to address problem: wound care, q2 turns, pain control, supportive care. (6) DVT prophylaxis Current Visit: Yes Status: Acute History Interval history: Pt lying in bed, Pt resting comfortably. Discussed care plan with mother and patient. Pt mother states that she cannot take care of patient at home. Discussed D/C to SNF versus home with home health. Case management consulted for placement and placement arranged. At time of discharge, pt mother states that she wants to take patient home, but cannot do so until 06/21/16. Hospitalist Physical - Constitutional Vitals: Temp Pulse Resp BP Pulse Ox 98.1 F 72 18 134/80 99 06/20/16 22:53 06/20/16 22:53 06/20/16 22:53 06/20/16 22:53 06/20/16 22:53 General appearance: Present: no acute distress, obese - EENT Eyes: Present: PERRL ENT: hearing intact - Neck Neck: Present: supple - Respiratory Respiratory effort: normal Respiratory: bilateral: CTA - Cardiovascular Rhythm: regular Heart Sounds: Present: S1 & S2 Peripheral Pulses: within normal limits - Abdominal General gastrointestinal: soft, non-tender, non-distended - Integumentary Integumentary: Present: clear, dry - Psychiatric Psychiatric: appropriate mood/affect, cooperative - Neurologic Neurologic: focal deficits, no moves all extremities, no gait normal Results - Labs CBC & Chem 7: 06/18/16 06:56 06/18/16 06:56 Labs: Laboratory Last Values WBC 3.3 K/mm3 (4.5-11.0) L 06/18/16 06:56 RBC 4.24 M/mm3 (3.65-5.03) 06/18/16 06:56 Hgb 11.4 gm/dl (10.1-14.3) 06/18/16 06:56 Hct 35.6 % (30.3-42.9) 06/18/16 06:56 MCV 84 fl (79-97) 06/18/16 06:56 MCH 27 pg (28-32) L 06/18/16 06:56 MCHC 32 % (30-34) 06/18/16 06:56 RDW 16.9 % (13.2-15.2) H 06/18/16 06:56 Plt Count 222 K/mm3 (140-440) 06/18/16 06:56 Lymph % (Auto) 34.2 % (13.4-35.0) 06/18/16 06:56 Harmon % (Auto) 11.4 % (0.0-7.3) H 06/18/16 06:56 Eos % (Auto) 9.0 % (0.0-4.3) H 06/18/16 06:56 Baso % (Auto) 1.1 % (0.0-1.8) 06/18/16 06:56 Lymph # 1.1 K/mm3 (1.2-5.4) L 06/18/16 06:56 Harmon # 0.4 K/mm3 (0.0-0.8) 06/18/16 06:56 Eos # 0.3 K/mm3 (0.0-0.4) 06/18/16 06:56 Baso # 0.0 K/mm3 (0.0-0.1) 06/18/16 06:56 Seg Neutrophils % 44.3 % (40.0-70.0) 06/18/16 06:56 Seg Neutrophils # 1.5 K/mm3 (1.8-7.7) L 06/18/16 06:56 Sodium 140 mmol/L (137-145) 06/18/16 06:56 Potassium 4.3 mmol/L (3.6-5.0) 06/18/16 06:56 Chloride 107.0 mmol/L (98-107) 06/18/16 06:56 Carbon Dioxide 16 mmol/L (22-30) L 06/18/16 06:56 Anion Gap 21 mmol/L 06/18/16 06:56 BUN 8 mg/dL (7-17) 06/18/16 06:56 Creatinine 0.3 mg/dL (0.7-1.2) L 06/18/16 06:56 Estimated GFR > 60 ml/min 06/18/16 06:56 BUN/Creatinine Ratio 26.66 % 06/18/16 06:56 Glucose 156 mg/dL (65-100) H 06/18/16 06:56 POC Glucose 103 (70-105) 06/20/16 23:29 Calcium 8.1 mg/dL (8.4-10.2) L 06/18/16 06:56 Total Creatine Kinase 62 units/L (30-135) 06/16/16 23:18
--- NOTE | 2016-06-21 09:06 | Discharge Summary ---
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 Notified:: answering service Phone number called:: [phone] Was contact made?: Yes If yes, spoke with:: ravindra Time called:: 09:31 06/17/16 15:24 Consult to Physician [CONS] Routine Consulting Provider: JAIDA GRIER Reason For Exam: decubitus ulcer, back pain Place consult to:: plastic surgery Notified:: answering machine Phone number called:: Was contact made?: No If yes, spoke with:: left message at [phone] Time called:: 16:44 06/19/16 07:34 Consult to Physician [CONS] Routine Consulting Provider: MARTIN ROSALES V Reason For Exam: back pain, patient can't lie flat Place consult to:: Orthopedics Notified:: answering service Phone number called:: Was contact made?: Yes If yes, spoke with:: ling Time called:: 08:41 06/19/16 16:25 Physical Therapy Evaluation and Treat [CONS] Routine Comment: Paraplegia, ankylosing spondylitis, back pain foll Reason For Exam: Assessment of ambulation, bed to chair/wheelchair Primary care physician: MARIA DEL CARMEN ISAAC Hospitalization Condition: Stable Disposition: STILL A PATIENT - Discharge Diagnoses (1) Paraplegic spinal paralysis Status: Chronic (2) Ankylosing spondylitis of lumbosacral region Status: Chronic (3) Diabetes mellitus Status: Chronic Qualifiers: Diabetes mellitus type: D Diabetes mellitus complication status: D Diabetes mellitus complication detail: D Diabetic retinopathy severity: D Proliferative retinopathy type: P Diabetes mellitus macular edema: D 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
[2016-06-21] MEDS: LOVENOX SUB-Q SCH (09:32)
[2016-06-21] MEDS: TENORMIN PO SCH (09:33)
[2016-06-21] MEDS: MAG-OX PO SCH (09:33)
[2016-06-21] MEDS: DIOVAN PO SCH (09:33)
[2016-06-21] MEDS: GLUCOPHAGE PO SCH (09:41)
[2016-06-21 09:44] VITALS: BP 164/80
[2016-06-21] MEDS: AMARYL PO SCH (10:11)
== END 2016-06-21 10:35 | disposition home health service (06) | DRG 592 ==
LOC: ED 14:21 → 3A 06-17 01:51
PROVIDERS: ADMIT Internal Medicine; ATTEND Internal Medicine
DX: L89.154 Pressure ulcer of sacral region, stage 4 (principal); G82.20 Paraplegia, unspecified; M45.7 Ankylosing spondylitis of lumbosacral region; E11.9 Type 2 diabetes mellitus without complications; E66.9 Obesity, unspecified; G89.29 Other chronic pain; G43.909 Migraine, unspecified, not intractable, without status migrainosus; Z93.3 Colostomy status; Z98.1 Arthrodesis status; Z83.3 Family history of diabetes mellitus; Z91.81 History of falling
CPT/HCPCS: 36415; 72070; 80048; 82550; 82962; 85025; 96361; 96374; 96375; 96376; 99215; G0463; J1170; J1650; J1815; J2060; J2270; J2405; J3370; J7030; J7050

== ENCOUNTER 2016-08-16 08:50 | Outpatient (CLI) | payer MEDICARE | END 2016-08-16 08:51 | disposition home or self-care (01) | LOC: WOUND 08:50 | PROVIDERS: ATTEND Internal Medicine | DX: T81.89XD Other complications of procedures, not elsewhere classified, subsequent encounter (principal); L89.319 Pressure ulcer of right buttock, unspecified stage; Y83.8 Other surgical procedures as the cause of abnormal reaction of the patient, or of later complication, without mention of misadventure at the time of the procedure | CPT/HCPCS: 99214; G0463 ==

== ENCOUNTER 2016-08-31 11:32 | Outpatient (CLI) | payer MEDICARE ==
[2016-08-31] MEDS ORDERED: DAKIN'S FULL STRENGTH ONE (12:40)
[2016-09-01] MEDS ORDERED: DAKIN'S FULL STRENGTH TP ONE (07:52)
== END 2016-08-31 11:33 | disposition home or self-care (01) ==
LOC: WOUND 11:32
PROVIDERS: ATTEND Nurse Practitioner
DX: T81.89XD Other complications of procedures, not elsewhere classified, subsequent encounter (principal); L89.314 Pressure ulcer of right buttock, stage 4; L89.150 Pressure ulcer of sacral region, unstageable; I10 Essential (primary) hypertension; G91.9 Hydrocephalus, unspecified; M48.00 Spinal stenosis, site unspecified; G82.20 Paraplegia, unspecified; E66.9 Obesity, unspecified; Y83.8 Other surgical procedures as the cause of abnormal reaction of the patient, or of later complication, without mention of misadventure at the time of the procedure

== ENCOUNTER 2016-09-06 08:48 | Outpatient (CLI) | payer MEDICARE ==
[2016-09-06] MEDS ORDERED: SILVER NITRATE TP ONE ×2 (09:56→13:12)
[2016-09-06] MEDS ORDERED: DAKIN'S FULL STRENGTH ONE (10:08)
[2016-09-06] MEDS ORDERED: DAKIN'S HALF STRENGTH TP ONE (13:12)
[2016-09-06] MEDS ORDERED: DAKIN'S FULL STRENGTH IR ONE (14:00)
== END 2016-09-06 08:49 | disposition home or self-care (01) ==
LOC: WOUND 08:48
PROVIDERS: ATTEND Surgery
DX: T81.89XD Other complications of procedures, not elsewhere classified, subsequent encounter (principal); L89.153 Pressure ulcer of sacral region, stage 3; L89.314 Pressure ulcer of right buttock, stage 4; E11.9 Type 2 diabetes mellitus without complications; E78.1 Pure hyperglyceridemia; I10 Essential (primary) hypertension; Y83.8 Other surgical procedures as the cause of abnormal reaction of the patient, or of later complication, without mention of misadventure at the time of the procedure
CPT/HCPCS: 17250

== ENCOUNTER 2016-09-20 08:51 | Outpatient (CLI) | payer MEDICARE ==
[2016-09-20] MEDS ORDERED: SILVER NITRATE TP ONE ×2 (09:49→13:59)
== END 2016-09-20 08:52 | disposition home or self-care (01) ==
LOC: WOUND 08:51
PROVIDERS: ATTEND Surgery
DX: T81.89XD Other complications of procedures, not elsewhere classified, subsequent encounter (principal); L89.154 Pressure ulcer of sacral region, stage 4; L89.314 Pressure ulcer of right buttock, stage 4; E11.9 Type 2 diabetes mellitus without complications; I10 Essential (primary) hypertension; Y83.8 Other surgical procedures as the cause of abnormal reaction of the patient, or of later complication, without mention of misadventure at the time of the procedure
CPT/HCPCS: 17250; 99213; G0463

== ENCOUNTER 2016-10-11 08:56 | Outpatient (CLI) | payer MEDICARE | END 2016-10-11 08:57 | disposition home or self-care (01) | LOC: WOUND 08:56 | PROVIDERS: ATTEND Surgery | DX: T81.89XD Other complications of procedures, not elsewhere classified, subsequent encounter (principal); L89.314 Pressure ulcer of right buttock, stage 4; L89.154 Pressure ulcer of sacral region, stage 4; I10 Essential (primary) hypertension; E11.628 Type 2 diabetes mellitus with other skin complications; Y83.8 Other surgical procedures as the cause of abnormal reaction of the patient, or of later complication, without mention of misadventure at the time of the procedure ==

== ENCOUNTER 2016-11-01 10:16 | Outpatient (CLI) | payer MEDICARE | END 2016-11-01 10:17 | disposition home or self-care (01) | LOC: WOUND 10:16 | PROVIDERS: ATTEND Surgery | DX: T81.89XD Other complications of procedures, not elsewhere classified, subsequent encounter (principal); L89.314 Pressure ulcer of right buttock, stage 4; I10 Essential (primary) hypertension; E11.9 Type 2 diabetes mellitus without complications; Y83.8 Other surgical procedures as the cause of abnormal reaction of the patient, or of later complication, without mention of misadventure at the time of the procedure ==

== ENCOUNTER 2016-11-14 10:13 | Outpatient (CLI) | payer MEDICARE ==
[2016-11-14] MEDS ORDERED: DAKIN'S FULL STRENGTH ONE (11:36)
[2016-11-14] MEDS ORDERED: DAKIN'S FULL STRENGTH TP SCH (22:00)
== END 2016-11-14 10:14 | disposition home or self-care (01) ==
LOC: WOUND 10:13
PROVIDERS: ATTEND Surgery
DX: T81.89XD Other complications of procedures, not elsewhere classified, subsequent encounter (principal); E11.622 Type 2 diabetes mellitus with other skin ulcer; L98.491 Non-pressure chronic ulcer of skin of other sites limited to breakdown of skin; L89.314 Pressure ulcer of right buttock, stage 4; L89.154 Pressure ulcer of sacral region, stage 4; I10 Essential (primary) hypertension; Y83.8 Other surgical procedures as the cause of abnormal reaction of the patient, or of later complication, without mention of misadventure at the time of the procedure
CPT/HCPCS: 99215; G0463

== ENCOUNTER 2016-12-06 10:02 | Outpatient (CLI) | payer MEDICARE ==
[2016-12-06] MEDS ORDERED: DAKIN'S FULL STRENGTH ONE (11:00)
[2016-12-06] MEDS ORDERED: DAKIN'S FULL STRENGTH TP ONE (11:01)
== END 2016-12-06 10:03 | disposition home or self-care (01) ==
LOC: WOUND 10:02
PROVIDERS: ATTEND Surgery
DX: T81.89XD Other complications of procedures, not elsewhere classified, subsequent encounter (principal); E11.622 Type 2 diabetes mellitus with other skin ulcer; L98.491 Non-pressure chronic ulcer of skin of other sites limited to breakdown of skin; L89.314 Pressure ulcer of right buttock, stage 4; I10 Essential (primary) hypertension; Y83.8 Other surgical procedures as the cause of abnormal reaction of the patient, or of later complication, without mention of misadventure at the time of the procedure

== ENCOUNTER 2016-12-20 10:24 | Outpatient (CLI) | payer MEDICARE | END 2016-12-20 10:25 | disposition home or self-care (01) | LOC: WOUND 10:24 | PROVIDERS: ATTEND Surgery | DX: T81.89XD Other complications of procedures, not elsewhere classified, subsequent encounter (principal); L89.314 Pressure ulcer of right buttock, stage 4; I10 Essential (primary) hypertension; Y83.8 Other surgical procedures as the cause of abnormal reaction of the patient, or of later complication, without mention of misadventure at the time of the procedure | CPT/HCPCS: 99215; G0463 ==

== ENCOUNTER 2017-01-02 10:17 | Outpatient (CLI) | payer MEDICARE | END 2017-01-02 10:18 | disposition home or self-care (01) | LOC: WOUND 10:17 | PROVIDERS: ATTEND Surgery | DX: T81.89XD Other complications of procedures, not elsewhere classified, subsequent encounter (principal); L89.154 Pressure ulcer of sacral region, stage 4; L89.314 Pressure ulcer of right buttock, stage 4; E11.622 Type 2 diabetes mellitus with other skin ulcer; L98.491 Non-pressure chronic ulcer of skin of other sites limited to breakdown of skin; L98.411 Non-pressure chronic ulcer of buttock limited to breakdown of skin; I10 Essential (primary) hypertension; Y83.8 Other surgical procedures as the cause of abnormal reaction of the patient, or of later complication, without mention of misadventure at the time of the procedure ==

== ENCOUNTER 2017-01-11 07:58 | Day surgery (SDC) | payer MEDICARE ==
--- NOTE | 2017-01-11 09:42 | Anesthesia Day of Surgery ---
Anesthesia Day of Surgery - Day of Surgery Patient Examined: Yes Patient H&P Reviewed: Yes Patient is NPO: Yes Beta Blockers: Yes
--- NOTE | 2017-01-11 09:42 | Anesthesia Consultation ---
Anesthesia Consult and Med Hx Date of service: 01/11/17 - Airway Anesthetic Teeth Evaluation: Good ROM Head & Neck: Adequate Mental/Hyoid Distance: Adequate Mallampati Class: Class II Intubation Access Assessment: Possibly Difficult - Pulmonary Exam CTA: Yes - Cardiac Exam Cardiac Exam: RRR - Pre-Operative Health Status ASA Pre-Surgery Classification: ASA3 Proposed Anesthetic Plan: General - Pre-Anesthesia Comment Pre-Anesthesia Comments: Pt with hx of hydrocephalus sp BARTENDERS shunt, paraplegia T10 and below, cerebral palsy, sp cervical fusion, and back sx - Pulmonary Hx Smoking: No Hx Asthma: No COPD: No Hx Pneumonia: No Hx Sleep Apnea: Yes (DX SLEEP APNEA , NO CPAP USE) - Cardiovascular System Hx Hypertension: Yes Hx Coronary Artery Disease: No Hx Heart Attack/AMI: No Hx Angina: No - Central Nervous System Hx Neuromuscular Disorder: Yes (h/o cerebral palsy and paraplegia Left.) Hx Seizures: No CVA: No Hx Back Pain: Yes - Endocrine Hx Renal Disease: No (colostomy (last year) and urostomy tube (over 10yrs)) Hx End Stage Renal Disease: No Hx Liver Disease: No Hx Insulin Dependent Diabetes: Yes Hx Non-Insulin Dependent Diabetes: No Hx Thyroid Disease: No - Hematic Hx Anemia: Yes - Other Systems Hx Alcohol Use: No Hx Cancer: No Hx Obesity: Yes - Additional Comments Anesthesia Medical History Comments: NAC
[2017-01-11] MEDS ORDERED: NACL 0.9% 1000 ML 1,000 ML IV SCH (10:00)
[2017-01-11] MEDS ORDERED: PEPCID PO NR (10:00)
[2017-01-11] MEDS ORDERED: VERSED IV NR (10:00)
[2017-01-11] MEDS ORDERED: DIPRIVAN 10 MG/ML IV ONE (10:17)
[2017-01-11] MEDS ORDERED: XYLOCAINE MPF 2% ONE (10:18)
[2017-01-11] MEDS ORDERED: SUBLIMAZE ONE (10:18)
[2017-01-11] MEDS ORDERED: XYLOCAINE 1% 20 mL ONE (10:30)
[2017-01-11] MEDS ORDERED: HYDROGEN PEROXIDE ONE (10:46)
[2017-01-11] MEDS ORDERED: MARCAINE-EPI/PF 0.25%-1:200,000 INFILTRATI ONE (10:47)
[2017-01-11] MEDS ORDERED: ZOFRAN ONE (11:33)
--- NOTE | 2017-01-11 12:12 | Procedure Note ---
Date of procedure: 01/11/17 Pre-op diagnosis: Non-healing abdominal wound, 10.7 cm Post-op diagnosis: same Procedure: Excision and intermediate closure of non-healing abdominal wound, 10.7 cm Description of procedure: Pt was placed supine on the OR table. General anesthesia by LMA was performed. Abdomen was prepped and draped. The area of non-healing skin was excised via an ellipse. Hemostasis of superficial bleeding was controlled with the Bovie. The wound was closed with interrupted deep dermal sutures of 3-0 Vicryl and a running subcuticular suture of 4-0 Monocryl. Skin glue was applied to the incision. Pt tolerated the procedure well. Anesthesia: other (General by LMA) Surgeon: VEE PENA Estimated blood loss: minimal Pathology: list (Non-healing skin) Specimen disposition: to lab Condition: stable Disposition: PACU
[2017-01-11] MEDS ORDERED: PERCOCET 5/325 PO PRN (12:46)
[2017-01-11 14:48] VITALS: BP 116/68
--- NOTE | 2017-01-11 17:36 | Post Anesthesia Evaluation ---
- Post Anesthesia Evaluation Patient Participated: Yes Airway Patent: Yes Stable Respiratory Function: Yes Nausea/Vomiting: No Temp > 96.8F: Yes Pain Manageable: Yes Adequeate Hydration: Yes Anesthesia Complications: No
== END 2017-01-11 14:05 | disposition home or self-care (01) ==
LOC: OR 07:58
PROVIDERS: ATTEND Surgery
DX: T81.89XA Other complications of procedures, not elsewhere classified, initial encounter (principal); Y83.8 Other surgical procedures as the cause of abnormal reaction of the patient, or of later complication, without mention of misadventure at the time of the procedure; E11.9 Type 2 diabetes mellitus without complications; I10 Essential (primary) hypertension; D64.9 Anemia, unspecified; E66.9 Obesity, unspecified; Z68.41 Body mass index [BMI] 40.0-44.9, adult; Z98.1 Arthrodesis status; Z93.3 Colostomy status; Z98.890 Other specified postprocedural states; Z88.3 Allergy status to other anti-infective agents; Z79.4 Long term (current) use of insulin; Z79.899 Other long term (current) drug therapy
CPT/HCPCS: 13160; 81025; 82962; 88304; J2250; J2405; J2704; J3010; J7030; 88305

== ENCOUNTER 2017-01-17 10:02 | Outpatient (CLI) | payer MEDICARE ==
[2017-01-17] MEDS ORDERED: SILVER NITRATE TP ONE ×2 (10:59→11:30)
== END 2017-01-17 10:03 | disposition home or self-care (01) ==
LOC: WOUND 10:02
PROVIDERS: ATTEND Surgery
DX: T81.89XD Other complications of procedures, not elsewhere classified, subsequent encounter (principal); L89.314 Pressure ulcer of right buttock, stage 4; L89.154 Pressure ulcer of sacral region, stage 4; Y83.8 Other surgical procedures as the cause of abnormal reaction of the patient, or of later complication, without mention of misadventure at the time of the procedure; I10 Essential (primary) hypertension
CPT/HCPCS: 17250

== ENCOUNTER 2017-01-31 09:58 | Outpatient (CLI) | payer MEDICARE | END 2017-01-31 09:59 | disposition home or self-care (01) | LOC: WOUND 09:58 | PROVIDERS: ATTEND Surgery | DX: T81.89XD Other complications of procedures, not elsewhere classified, subsequent encounter (principal); E11.622 Type 2 diabetes mellitus with other skin ulcer; L98.491 Non-pressure chronic ulcer of skin of other sites limited to breakdown of skin; L89.314 Pressure ulcer of right buttock, stage 4; L89.154 Pressure ulcer of sacral region, stage 4; I10 Essential (primary) hypertension; Y83.8 Other surgical procedures as the cause of abnormal reaction of the patient, or of later complication, without mention of misadventure at the time of the procedure | CPT/HCPCS: 99215; G0463 ==

== ENCOUNTER 2017-02-13 10:03 | Outpatient (CLI) | payer MEDICARE | END 2017-02-13 10:04 | disposition home or self-care (01) | LOC: WOUND 10:03 | PROVIDERS: ATTEND Surgery | DX: T81.89XD Other complications of procedures, not elsewhere classified, subsequent encounter (principal); E11.622 Type 2 diabetes mellitus with other skin ulcer; L98.411 Non-pressure chronic ulcer of buttock limited to breakdown of skin; L89.314 Pressure ulcer of right buttock, stage 4; L89.154 Pressure ulcer of sacral region, stage 4; I10 Essential (primary) hypertension; Y83.8 Other surgical procedures as the cause of abnormal reaction of the patient, or of later complication, without mention of misadventure at the time of the procedure | CPT/HCPCS: 99215; G0463 ==

== ENCOUNTER 2017-03-07 10:07 | Outpatient (CLI) | payer MEDICARE ==
[2017-03-07] MEDS ORDERED: DAKIN'S FULL STRENGTH ONE (11:49)
[2017-03-07] MEDS ORDERED: DAKIN'S HALF STRENGTH TP ONE (13:50)
[2017-03-07] MEDS ORDERED: DAKIN'S FULL STRENGTH TP ONE (14:00)
== END 2017-03-07 10:08 | disposition home or self-care (01) ==
LOC: WOUND 10:07
PROVIDERS: ATTEND Surgery
DX: E11.622 Type 2 diabetes mellitus with other skin ulcer (principal); L98.491 Non-pressure chronic ulcer of skin of other sites limited to breakdown of skin; L89.154 Pressure ulcer of sacral region, stage 4; I10 Essential (primary) hypertension

== ENCOUNTER 2017-03-28 09:51 | Outpatient (CLI) | payer MEDICARE | END 2017-03-28 09:52 | disposition home or self-care (01) | LOC: WOUND 09:51 | PROVIDERS: ATTEND Surgery | DX: L98.491 Non-pressure chronic ulcer of skin of other sites limited to breakdown of skin (principal); L89.154 Pressure ulcer of sacral region, stage 4; L89.314 Pressure ulcer of right buttock, stage 4; I10 Essential (primary) hypertension ==

== ENCOUNTER 2017-04-18 10:17 | Outpatient (CLI) | payer MEDICARE | END 2017-04-18 10:18 | disposition home or self-care (01) | LOC: WOUND 10:17 | PROVIDERS: ATTEND Surgery | DX: L89.314 Pressure ulcer of right buttock, stage 4 (principal); L89.154 Pressure ulcer of sacral region, stage 4; I10 Essential (primary) hypertension ==

== ENCOUNTER 2017-05-09 08:05 | Outpatient (CLI) | payer MEDICARE | END 2017-05-09 08:06 | disposition home or self-care (01) | LOC: WOUND 08:05 | PROVIDERS: ATTEND Surgery | DX: E11.622 Type 2 diabetes mellitus with other skin ulcer (principal); L98.491 Non-pressure chronic ulcer of skin of other sites limited to breakdown of skin; L89.154 Pressure ulcer of sacral region, stage 4; L98.411 Non-pressure chronic ulcer of buttock limited to breakdown of skin; L89.314 Pressure ulcer of right buttock, stage 4; I10 Essential (primary) hypertension ==

== ENCOUNTER 2017-05-29 10:03 | Outpatient (CLI) | payer MEDICARE | END 2017-05-29 10:04 | disposition home or self-care (01) | LOC: WOUND 10:03 | PROVIDERS: ATTEND Surgery | DX: E11.622 Type 2 diabetes mellitus with other skin ulcer (principal); L98.411 Non-pressure chronic ulcer of buttock limited to breakdown of skin; L89.314 Pressure ulcer of right buttock, stage 4; L89.154 Pressure ulcer of sacral region, stage 4; I10 Essential (primary) hypertension ==

== ENCOUNTER 2017-06-12 09:55 | Outpatient (CLI) | payer MEDICARE | END 2017-06-12 09:56 | disposition home or self-care (01) | LOC: WOUND 09:55 | PROVIDERS: ATTEND Surgery | DX: E11.622 Type 2 diabetes mellitus with other skin ulcer (principal); L98.411 Non-pressure chronic ulcer of buttock limited to breakdown of skin; L89.314 Pressure ulcer of right buttock, stage 4; L89.154 Pressure ulcer of sacral region, stage 4; I10 Essential (primary) hypertension ==

== ENCOUNTER 2017-07-03 08:00 | Outpatient (CLI) | payer MEDICARE | END 2017-07-03 08:01 | disposition home or self-care (01) | LOC: WOUND 08:00 | PROVIDERS: ATTEND Surgery | DX: E11.622 Type 2 diabetes mellitus with other skin ulcer (principal); L98.411 Non-pressure chronic ulcer of buttock limited to breakdown of skin; L89.314 Pressure ulcer of right buttock, stage 4; L89.154 Pressure ulcer of sacral region, stage 4; I10 Essential (primary) hypertension ==

== ENCOUNTER 2017-08-07 07:59 | Outpatient (CLI) | payer MEDICARE | END 2017-08-07 08:00 | disposition home or self-care (01) | LOC: WOUND 07:59 | PROVIDERS: ATTEND Surgery | DX: E11.622 Type 2 diabetes mellitus with other skin ulcer (principal); L98.421 Non-pressure chronic ulcer of back limited to breakdown of skin; L98.411 Non-pressure chronic ulcer of buttock limited to breakdown of skin; L89.314 Pressure ulcer of right buttock, stage 4; L89.154 Pressure ulcer of sacral region, stage 4; I10 Essential (primary) hypertension | CPT/HCPCS: 97597; 97598 ==

== ENCOUNTER 2017-08-21 07:58 | Outpatient (CLI) | payer MEDICARE | END 2017-08-21 07:59 | disposition home or self-care (01) | LOC: WOUND 07:58 | PROVIDERS: ATTEND Surgery | DX: E11.622 Type 2 diabetes mellitus with other skin ulcer (principal); L89.314 Pressure ulcer of right buttock, stage 4; L89.154 Pressure ulcer of sacral region, stage 4; L98.491 Non-pressure chronic ulcer of skin of other sites limited to breakdown of skin; S71.111A Laceration without foreign body, right thigh, initial encounter; I10 Essential (primary) hypertension; X58.XXXA Exposure to other specified factors, initial encounter; Y93.89 Activity, other specified; Y92.89 Other specified places as the place of occurrence of the external cause; Y99.8 Other external cause status ==

== ENCOUNTER 2017-09-04 08:18 | Outpatient (CLI) | payer MEDICARE | END 2017-09-04 08:19 | disposition home or self-care (01) | LOC: WOUND 08:18 | PROVIDERS: ATTEND Surgery | DX: E11.622 Type 2 diabetes mellitus with other skin ulcer (principal); L98.411 Non-pressure chronic ulcer of buttock limited to breakdown of skin; L89.314 Pressure ulcer of right buttock, stage 4; L89.154 Pressure ulcer of sacral region, stage 4; S71.111D Laceration without foreign body, right thigh, subsequent encounter; I10 Essential (primary) hypertension; X58.XXXD Exposure to other specified factors, subsequent encounter ==

== ENCOUNTER 2017-09-21 08:01 | Outpatient (CLI) | payer MEDICARE | END 2017-09-21 08:02 | disposition home or self-care (01) | LOC: WOUND 08:01 | PROVIDERS: ATTEND Surgery | DX: E11.622 Type 2 diabetes mellitus with other skin ulcer (principal); L98.411 Non-pressure chronic ulcer of buttock limited to breakdown of skin; L89.314 Pressure ulcer of right buttock, stage 4; L89.154 Pressure ulcer of sacral region, stage 4; S71.111D Laceration without foreign body, right thigh, subsequent encounter; I10 Essential (primary) hypertension; X58.XXXD Exposure to other specified factors, subsequent encounter | CPT/HCPCS: 99214; G0463 ==

== ENCOUNTER 2017-10-03 08:19 | Outpatient (CLI) | payer MEDICARE | END 2017-10-03 08:20 | disposition home or self-care (01) | LOC: WOUND 08:19 | PROVIDERS: ATTEND Surgery | DX: E11.622 Type 2 diabetes mellitus with other skin ulcer (principal); L89.154 Pressure ulcer of sacral region, stage 4; L89.314 Pressure ulcer of right buttock, stage 4; L98.491 Non-pressure chronic ulcer of skin of other sites limited to breakdown of skin; I10 Essential (primary) hypertension ==

== ENCOUNTER 2017-10-16 08:22 | Outpatient (CLI) | payer MEDICARE | END 2017-10-16 08:23 | disposition home or self-care (01) | LOC: WOUND 08:22 | PROVIDERS: ATTEND Surgery | DX: E11.622 Type 2 diabetes mellitus with other skin ulcer (principal); L98.411 Non-pressure chronic ulcer of buttock limited to breakdown of skin; L98.491 Non-pressure chronic ulcer of skin of other sites limited to breakdown of skin; L89.314 Pressure ulcer of right buttock, stage 4; L89.154 Pressure ulcer of sacral region, stage 4; Q05.7 Lumbar spina bifida without hydrocephalus; I10 Essential (primary) hypertension; G80.9 Cerebral palsy, unspecified ==

== ENCOUNTER 2017-10-30 08:14 | Outpatient (CLI) | payer MEDICARE ==
[2017-10-30] MEDS ORDERED: SILVER NITRATE TP ONE ×2 (09:00→14:58)
== END 2017-10-30 08:15 | disposition home or self-care (01) ==
LOC: WOUND 08:14
PROVIDERS: ATTEND Surgery
DX: E11.622 Type 2 diabetes mellitus with other skin ulcer (principal); L89.314 Pressure ulcer of right buttock, stage 4; L98.411 Non-pressure chronic ulcer of buttock limited to breakdown of skin; L89.154 Pressure ulcer of sacral region, stage 4; L98.491 Non-pressure chronic ulcer of skin of other sites limited to breakdown of skin; I10 Essential (primary) hypertension; G80.9 Cerebral palsy, unspecified
CPT/HCPCS: 17250

== ENCOUNTER 2017-11-14 08:18 | Outpatient (CLI) | payer MEDICARE | END 2017-11-14 08:19 | disposition home or self-care (01) | LOC: WOUND 08:18 | PROVIDERS: ATTEND Surgery | DX: E11.622 Type 2 diabetes mellitus with other skin ulcer (principal); L89.314 Pressure ulcer of right buttock, stage 4; L98.411 Non-pressure chronic ulcer of buttock limited to breakdown of skin; L89.154 Pressure ulcer of sacral region, stage 4; L98.491 Non-pressure chronic ulcer of skin of other sites limited to breakdown of skin; I10 Essential (primary) hypertension; G80.9 Cerebral palsy, unspecified ==

== ENCOUNTER 2017-12-06 09:38 | Outpatient (CLI) | payer MEDICARE | END 2017-12-06 09:39 | disposition home or self-care (01) | LOC: WOUND 09:38 | PROVIDERS: ATTEND Surgery | DX: E11.622 Type 2 diabetes mellitus with other skin ulcer (principal); L89.314 Pressure ulcer of right buttock, stage 4; L98.411 Non-pressure chronic ulcer of buttock limited to breakdown of skin; L89.154 Pressure ulcer of sacral region, stage 4; L98.491 Non-pressure chronic ulcer of skin of other sites limited to breakdown of skin; I10 Essential (primary) hypertension; G80.9 Cerebral palsy, unspecified ==

== ENCOUNTER → 2017-12-18 | Outpatient (CLI) | payer MEDICARE | END | disposition home or self-care (01) | LOC: WOUND 08:27 | PROVIDERS: ATTEND Surgery | DX: E11.622 Type 2 diabetes mellitus with other skin ulcer (principal); L89.314 Pressure ulcer of right buttock, stage 4; L98.411 Non-pressure chronic ulcer of buttock limited to breakdown of skin; L89.154 Pressure ulcer of sacral region, stage 4; L98.491 Non-pressure chronic ulcer of skin of other sites limited to breakdown of skin; I10 Essential (primary) hypertension; G80.9 Cerebral palsy, unspecified ==

== ENCOUNTER 2018-01-01 08:18 | Outpatient (CLI) | payer MEDICARE | END 2018-01-01 08:19 | disposition home or self-care (01) | LOC: WOUND 08:18 | PROVIDERS: ATTEND Surgery | DX: E11.622 Type 2 diabetes mellitus with other skin ulcer (principal); L89.314 Pressure ulcer of right buttock, stage 4; L98.411 Non-pressure chronic ulcer of buttock limited to breakdown of skin; L89.154 Pressure ulcer of sacral region, stage 4; L98.491 Non-pressure chronic ulcer of skin of other sites limited to breakdown of skin; I10 Essential (primary) hypertension; G80.9 Cerebral palsy, unspecified ==

== ENCOUNTER 2018-01-22 09:15 | Outpatient (CLI) | payer MEDICARE ==
[2018-01-22] MEDS ORDERED: SILVER NITRATE TP ONE ×2 (10:38→13:16)
== END 2018-01-22 09:16 | disposition home or self-care (01) ==
LOC: WOUND 09:15
PROVIDERS: ATTEND Surgery
DX: E11.622 Type 2 diabetes mellitus with other skin ulcer (principal); L89.314 Pressure ulcer of right buttock, stage 4; L98.411 Non-pressure chronic ulcer of buttock limited to breakdown of skin; L89.154 Pressure ulcer of sacral region, stage 4; L98.491 Non-pressure chronic ulcer of skin of other sites limited to breakdown of skin; I10 Essential (primary) hypertension; G80.9 Cerebral palsy, unspecified

== ENCOUNTER 2018-01-30 09:15 | Outpatient (CLI) | payer MEDICARE ==
[2018-01-30] MEDS ORDERED: SILVER NITRATE TP ONE ×2 (09:53→11:05)
== END 2018-01-30 09:16 | disposition home or self-care (01) ==
LOC: WOUND 09:15
PROVIDERS: ATTEND Surgery
DX: E11.622 Type 2 diabetes mellitus with other skin ulcer (principal); L89.314 Pressure ulcer of right buttock, stage 4; L98.411 Non-pressure chronic ulcer of buttock limited to breakdown of skin; L89.154 Pressure ulcer of sacral region, stage 4; L98.491 Non-pressure chronic ulcer of skin of other sites limited to breakdown of skin; I10 Essential (primary) hypertension; G80.9 Cerebral palsy, unspecified

== ENCOUNTER 2018-02-06 09:11 | Outpatient (CLI) | payer MEDICARE ==
[2018-02-06] MEDS ORDERED: SILVER NITRATE TP ONE ×3 (09:37→16:36)
== END 2018-02-06 09:12 | disposition home or self-care (01) ==
LOC: WOUND 09:11
PROVIDERS: ATTEND Surgery
DX: E11.622 Type 2 diabetes mellitus with other skin ulcer (principal); L89.314 Pressure ulcer of right buttock, stage 4; L98.411 Non-pressure chronic ulcer of buttock limited to breakdown of skin; L89.154 Pressure ulcer of sacral region, stage 4; L98.491 Non-pressure chronic ulcer of skin of other sites limited to breakdown of skin; I10 Essential (primary) hypertension; G80.9 Cerebral palsy, unspecified

== ENCOUNTER 2018-02-21 07:58 | Outpatient (CLI) | payer MEDICARE ==
[2018-02-21] MEDS ORDERED: DAKIN'S FULL STRENGTH ONE (08:46)
[2018-02-21] MEDS ORDERED: DAKIN'S FULL STRENGTH TP ONE (08:51)
[2018-02-21] MEDS ORDERED: SILVER NITRATE TP ONE ×2 (09:00→09:54)
== END 2018-02-21 07:59 | disposition home or self-care (01) ==
LOC: WOUND 07:58
PROVIDERS: ATTEND Surgery
DX: E11.622 Type 2 diabetes mellitus with other skin ulcer (principal); L89.314 Pressure ulcer of right buttock, stage 4; L97.411 Non-pressure chronic ulcer of right heel and midfoot limited to breakdown of skin; L89.154 Pressure ulcer of sacral region, stage 4; L98.491 Non-pressure chronic ulcer of skin of other sites limited to breakdown of skin; I10 Essential (primary) hypertension; G80.9 Cerebral palsy, unspecified

== ENCOUNTER 2018-05-03 09:14 | Outpatient (CLI) | payer MEDICARE | END 2018-05-03 09:15 | disposition home or self-care (01) | LOC: WOUND 09:14 | PROVIDERS: ATTEND Surgery | DX: E11.622 Type 2 diabetes mellitus with other skin ulcer (principal); L89.313 Pressure ulcer of right buttock, stage 3; L98.412 Non-pressure chronic ulcer of buttock with fat layer exposed; L89.152 Pressure ulcer of sacral region, stage 2; L98.491 Non-pressure chronic ulcer of skin of other sites limited to breakdown of skin; I10 Essential (primary) hypertension; G80.9 Cerebral palsy, unspecified; E66.9 Obesity, unspecified; Z68.29 Body mass index [BMI] 29.0-29.9, adult ==